=== PATIENT | female | born 1940 | race Caucasian/White ===

== ENCOUNTER 2020-12-22 10:19 | Emergency (ER) | payer MEDICAID, MEDICARE ==
[~2020-12-22] VITALS: Ht 165.1 cm; Wt 61.4 kg
[2020-12-22 10:23] VITALS: BP 145/59
[2020-12-22] MEDS ORDERED: CEPH-585 PO (14:35)
[2020-12-22] MEDS ORDERED: PRED20TA PO (14:35)
[2020-12-22] MEDS ORDERED: DIPH25CA83 PO (14:35)
== END 2020-12-22 15:11 | disposition home or self-care (01) ==
LOC: ER 10:19
DX: T78.49XA Other allergy, initial encounter (principal); L03.113 Cellulitis of right upper limb; I10 Essential (primary) hypertension; K21.9 Gastro-esophageal reflux disease without esophagitis; Z72.89 Other problems related to lifestyle; Z88.2 Allergy status to sulfonamides; Z88.8 Allergy status to other drugs, medicaments and biological substances; Z79.2 Long term (current) use of antibiotics; Z79.899 Other long term (current) drug therapy; X58.XXXA Exposure to other specified factors, initial encounter
CPT/HCPCS: 99283

== ENCOUNTER 2021-02-14 08:34 | Emergency (ER) | payer MEDICARE ==
[~2021-02-14] VITALS: Ht 162.6 cm; Wt 62.3 kg
[~2021-02-14 08:34] MED LIST: CEPH-585 PO; DIPH25CA83 PO
[2021-02-14 08:43] VITALS: BP 116/66
[2021-02-14] MEDS ORDERED: predniSONE 20 mg tablet PO ONE (09:05)
[2021-02-14] MEDS ORDERED: BETA15CR4 TOP (09:09)
[2021-02-14] MEDS ORDERED: DIPH25CA83 PO (09:09)
[2021-02-14] MEDS ORDERED: PRED20TA PO (09:09)
[2021-02-14] MEDS ORDERED: famotidine 10mg tablet PO SCH (20:00)
[2021-02-14] MEDS ORDERED: famotidine 20mg tablet PO SCH (20:00)
== END 2021-02-14 09:44 | disposition home or self-care (01) ==
LOC: ER 08:34
DX: T78.49XA Other allergy, initial encounter (principal); F32.9 Major depressive disorder, single episode, unspecified; K21.9 Gastro-esophageal reflux disease without esophagitis; I10 Essential (primary) hypertension; Z88.2 Allergy status to sulfonamides; Z88.5 Allergy status to narcotic agent; Z79.899 Other long term (current) drug therapy
CPT/HCPCS: 99283; J7512